=== PATIENT | male | born 1950 ===

== ENCOUNTER → 2018-01-03 | Outpatient (CLI) | payer OTHER | LOC: LAB SHORT 16:54 → LAB 16:54 | DX: L08.9 Local infection of the skin and subcutaneous tissue, unspecified (principal) | CPT/HCPCS: 87070; 87077; 87147; 87186; 87205 ==

== ENCOUNTER → 2020-01-14 | Outpatient (CLI) | payer OTHER | LOC: LAB 19:23 → LAB SHORT 19:23 | DX: D22.5 Melanocytic nevi of trunk (principal); D48.5 Neoplasm of uncertain behavior of skin; L40.0 Psoriasis vulgaris; L08.9 Local infection of the skin and subcutaneous tissue, unspecified; L70.8 Other acne; L82.1 Other seborrheic keratosis; L81.4 Other melanin hyperpigmentation; R21 Rash and other nonspecific skin eruption; Z71.89 Other specified counseling | CPT/HCPCS: 87070; 87205 ==

== ENCOUNTER 2024-10-27 14:36 | Observation (INO) | payer OTHER ==
[~2024-10-27] VITALS: Ht 167.6 cm; Wt 77.1 kg
[2024-10-27] MEDS ORDERED: NS 1,000 ML IV SCH ×2 (15:00→18:35)
[2024-10-27 15:10] LABS: BASOPHILS ABSOLUTE AUTO 0.07 K/mm3 (0.00-0.23); BASOPHILS PERCENT AUTO 1 % (0-2); EOSINOPHILS ABSOLUTE AUTO 0.30 K/mm3 (0.00-0.68); EOSINOPHILS PERCENT AUTO 3 % (0-6); Hematocrit 34.1 % (37.0-53.0); Hemoglobin 11.3 g/dL (13.5-17.5); IMMATURE GRAN ABSOLUTE AUTO 0.01 K/mm3 (0.00-0.10); IMMATURE GRAN PERCENT AUTO 0 % (0-1); LYMPHOCYTES ABSOLUTE AUTO 2.61 K/mm3 (0.84-5.20); LYMPHOCYTES PERCENT AUTO 27 % (21-46); MONOCYTES ABSOLUTE AUTO 0.71 K/mm3 (0.16-1.47); MONOCYTES PERCENT AUTO 7 % (4-13); Mean Corpuscular HGB Conc 33.1 g/dL (31.5-36.5); Mean Corpuscular Volume 91 fL (80-100); NEUTROPHILS ABSOLUTE AUTO 6.07 K/mm3 (1.96-9.15); NEUTROPHILS PERCENT AUTO 62 % (41-73); NRBC ABSOLUTE 0.00 K/mm3 (0.00-0.02); NRBC Auto 0.0 /100 WBC (0.0-0.2); Platelet Count 276 K/mm3 (150-400); RDW Coefficient Variation 12.3 % (11.7-14.2); RDW Standard Deviation 41.4 fL (35.1-46.3)
[2024-10-27 15:58] LABS: Alanine Aminotransfer (ALT/SGP 20.0 U/L (12-78); Albumin, Blood 2.9 g/dL (3.4-5.0); Albumin/Globulin Ratio 1.0 (0.8-1.8); Anion Gap 8.0 mmol/L (3-11); Aspartate Aminotrans (AST/SGOT 12.0 U/L (12-37); Bilirubin, Total 0.3 mg/dL (0.1-1.0); Blood Urea Nitrogen 21.0 mg/dL (8-24); CO2, Blood 26.0 mmol/L (21-32); Calcium, Blood 8.2 mg/dL (8.5-10.1); Chloride, Blood 105.0 mmol/L (98-108); Creatinine, Blood 1.33 mg/dL (0.60-1.20); Globulin, Blood 3.0 g/dL (2.2-4.0); Glucose, Blood 272.0 mg/dL (70-99); Potassium, Blood 4.2 mmol/L (3.5-5.5); Sodium, Blood 135.0 mmol/L (136-145); Total Protein, Blood 5.9 g/dL (6.4-8.2)
[2024-10-27 18:50] VITALS: BP 138/67
[2024-10-27 19:30] VITALS: BP 128/69
[2024-10-27] MEDS ORDERED: ESCI10 PO (20:38)
[2024-10-27] MEDS ORDERED: STIOLTO RESPIMAT4 G1 INH (20:42)
[2024-10-27] MEDS ORDERED: ACET500 PO (20:43)
[2024-10-27] MEDS ORDERED: METF500 PO (20:44)
[2024-10-27] MEDS ORDERED: Lisinopril-Hct1 EAC4 PO (20:44)
[2024-10-27] MEDS ORDERED: ALBU90OI INH (20:45)
[2024-10-28 03:55] VITALS: BP 125/84
--- NOTE | 2024-10-28 04:47 | NUR ---
SHIFT SUMMARY: PT AOX4 HASNT GOTTEN OUT OF BED BUT IS IND WITH THE URINAL, SOME DIFFICULTY SLEEPING BUT ABLE TO GET SOME REST. CLAIMS TO BE FEELING MUCH BETTER. VITAL SIGNS HAVE BEEN STABLE AND CBG'S HAVE BEEN GOOD. PT ABLE TO EAT A LITTLE BIT OF A SNACK AND KEEP DOWN FLUIDS. TOLERATING MEDICATIONS WELL. PT COOPERATIVE IN CARE. PT IN BED RESTING, BED IN LOWEST POSITION, CALL LIGHT IN REACH. CONTINUING CARE.
[2024-10-28 06:17] LABS: Anion Gap 8.0 mmol/L (3-11); Blood Urea Nitrogen 18.0 mg/dL (8-24); CO2, Blood 24.0 mmol/L (21-32); Calcium, Blood 8.3 mg/dL (8.5-10.1); Chloride, Blood 106.0 mmol/L (98-108); Creatinine, Blood 1.06 mg/dL (0.60-1.20); Glucose, Blood 215.0 mg/dL (70-99); Potassium, Blood 4.0 mmol/L (3.5-5.5); Sodium, Blood 134.0 mmol/L (136-145)
[2024-10-28] MEDS ORDERED: Insulin Human Lispro 100 Units/ML 3ML Syringe SC SCH (07:30)
[2024-10-28 07:59] VITALS: BP 141/72
[2024-10-28] MEDS ORDERED: Enoxaparin 40 MG/0.4 ML SYR SC SCH (09:00)
--- NOTE | 2024-10-28 13:54 | NUR ---
DISCHARGE NOTE- PT CALLED HIS FRIENDS AFTER SEEING THE DOCTOR THIS MORNING AND TOLD THEM HE WOULD NEED A RIDE HOME. HE THEN BEGAN RECIEVING PHONE CALLS TRYING TO DETERMINE WHEN. HE BECAME AGGITATED THAT IT WAS TAKING SO LONG. DR WANTED HIM TO AMBULATE, STAFF WERE UNABLE TO AMBULATE THE PT BECAUSE HE WAS CONSTANTLY ON THE PHONE. ONCE HE WAS OFF THE PHONE HE AMBULATED IN THE CHOU, ATE LUNCH AND TOOK A SHOWER. DR NOTIFIED THE PT THEN CAME TO THE DOOR AND SAID HE IS READY TO GO HOME NOW. IS WAITING FOR [employer] TO DO THEIR SCREENING AND ONCE THEY GET IN TOUCH WITH HIM HE WILL WRITE THE DC. SPOKE TO [facility]ARE MANAGEMENT THEY NOTIFIED HIM. PT WAS UNWILLING TO "WAIT" ANY LONGER. HE LEFT BEFORE DC ORDERS WERE COMPLETED, IV AND TELE DC'D PRIOR TO DC, PT REFUSED ESCORT AND WALKED OUT. ATTEMPTED TO CALL PT LEFT A VOICEMAIL ASKING FOR A CALL BACK, TO NOTIFY HIM HE SHOULD NOT DRIVE UNTIL HE FOLLOWS UP WITH HIS PRIMARY CARE PROVIDER.
== END 2024-10-28 13:23 | disposition left against medical advice (07) ==
LOC: ER 14:36 → MEDS 14:37
PROVIDERS: Emergency Medicine; Nurse Practitioner Acute Care; ADMIT Internal Medicine
DX: R55 Syncope and collapse (principal); N17.9 Acute kidney failure, unspecified; I10 Essential (primary) hypertension; E11.649 Type 2 diabetes mellitus with hypoglycemia without coma; K52.9 Noninfective gastroenteritis and colitis, unspecified; E78.00 Pure hypercholesterolemia, unspecified; I95.9 Hypotension, unspecified; Z53.29 Procedure and treatment not carried out because of patient's decision for other reasons; Z79.899 Other long term (current) drug therapy
CPT/HCPCS: 36415; 71045; 80048; 80053; 80320; 82947; 84484; 85025; 93005; 93010; 96360; 96361; 96372; 99285-25; A9270; G0378; J1650; J7030